=== PATIENT | female | born 1995 | race African-American/Black ===

== ENCOUNTER 2017-01-23 10:40 | Emergency (ER) | payer SELFPAY ==
[2017-01-23 10:48] VITALS: TEMP 37
[2017-01-23] MEDS ORDERED: MoRPHine SULFATE 4 MG/ML 1 ML CARP\\VIAL IV STA (11:05)
[2017-01-23] MEDS ORDERED: ONDANSETRON INJ 2 MG/ML 2 ML VIAL IV STA (11:05)
--- NOTE | 2017-01-23 11:11 | EMERGENCY ROOM VISIT NOTE ---
History First contact with patient: 10:51 Chief Complaint: ABDOMINAL PAIN Stated Complaint: STOMACH ACHE History of Present Illness The patient is a 21 year old female who presents to the Emergency Room via private vehicle accompanied by female with complaints of "stomachache". The patient states that 4 days ago she began with left upper quadrant abdominal pain status post eating. She states that the discomfort at times will radiate into the lower abdomen. The pain has been constant, and rates it as a 6-7/10. She's never had this before. There is associated nausea, a chilled feeling. She also notes frequent bowel movements, and urinary frequency. She denies any vomiting, diarrhea, recent antibiotic use, chance of , vaginal discharge, back pain, recent sexual activity. Review of Systems A complete 10-point Review of Systems was discussed with the patient, with pertinent positives and negatives listed in the History of Present Illness. All remaining Review of Systems questions can be considered negative unless otherwise specified. Past Medical/Surgical History Stomach problems. Family History Diabetes Social History Smoking Status: Never Smoker Patient lives with self. Denies tobacco use, and admits to alcohol use. Current/Historical Medications Scheduled PRN Ibuprofen (Ibu-200), 2 TAB PO QID PRN for Pain Oxycodone Ir (Roxicodone Ir), 1-2 TAB PO Q4H PRN for Pain Simethicone (Gas Relief), 1 TAB PO DAILY PRN for Gas or Constipation Physical Exam Vital Signs Date Time Temp Pulse Resp B/P (MAP) Pulse Ox O2 Delivery O2 Flow Rate FiO2 01/23/17 13:50 82 14 128/78 97 Room Air 01/23/17 13:00 86 16 124/76 97 Room Air 01/23/17 12:19 98 Room Air 01/23/17 10:48 37.0 83 18 128/89 100 Room Air Physical Exam VITAL SIGNS - Vital signs and nursing notes were reviewed. Patient is afebrile , normotensive, non-tachycardic and is saturating well on room air at 100%. GENERAL -21-year-old female appearing her stated age who is in no acute distress. Communicates well with provider and answers questions appropriately. SKIN - Without rashes. No petechial rashes. HEAD - NC/AT. EYES - Sclera anicteric. No hyphema. EARS - No deformities of external structures noted on gross examination bilaterally. NOSE - Midline and without cyanosis. No epistaxis or purulent drainage noted. MOUTH/OROPHARYNX - Without perioral cyanosis. NECK - Neck with FROM. No meningismus. LUNGS - Chest wall symmetric without accessory muscle use, intercostals retractions, or central cyanosis. Normal vesicular breath sounds CTA B/L. No wheezes, rales, or rhonchi appreciated. CARDIAC - RRR with S1/S2. No murmur, rubs, or gallops appreciated. ABDOMEN - Abdominal contour without pulsations or visible masses. BS normoactive all four quadrants. There is tenderness palpation in the left upper quadrant. No suprapubic tenderness. No inferior quadrant tenderness. No palpable masses, hepatosplenomegaly, or ascites noted. EXTREMITIES - No clubbing or peripheral cyanosis. No pretibial edema present. +5 /5 strength noted in UE/LE bilaterally. NEUROLOGIC - Cranial nerves II through XII grossly intact. PSYCH - A&O. Pt is very pleasant and interacts well with examiner. Medical Decision & Procedures ER Provider Diagnostic Interpretation: ABDOMEN COMPLETE (US) CLINICAL HISTORY: Left upper quadrant abdominal pain COMPARISON STUDY: No previous studies for comparison. FINDINGS: The liver appears sonographically normal. The pancreas appears sonographically normal. The gallbladder appears sonographically normal. There is no ductal dilatation. The common bile duct measures 3 mm. The spleen measures 7 cm. No splenic masses are visualized. The right kidney measures 12.2 cm in length. The left kidney measures 11.6 cm in length. No renal masses are visualized. There is no hydronephrosis. There is borderline increased renal cortical echogenicity. There is no evidence of abdominal aortic dilatation. The IVC appears patent. IMPRESSION: Renal cortical echogenicity is at the upper limits of normal. Correlation with urinary function studies is recommended. Otherwise normal ultrasound of the upper abdomen Electronically signed by: Steve Bee M.D. 01/23/2017 1:03 PM Dictated Date/Time: 01/23/2017 1:[address] ABD/PELVIS IV AND ORAL CONT CLINICAL HISTORY: Left upper quadrant pain radiation into lower abdomen COMPARISON STUDY: Abdominal ultrasound dated 01/23/2017 TECHNIQUE: Following the IV administration of 94 mL of Optiray-320, CT scan of the abdomen and pelvis was performed from the lung bases to the proximal femurs. Images are reviewed in the axial, sagittal, and coronal planes. IV contrast was administered without complication. A dose lowering technique was utilized adhering to the principles of ALARA. CT DOSE: 321.59 mGy.cm FINDINGS: Lower chest: The heart is normal in size and configuration, without pericardial effusion. The lung bases and pleural spaces are clear. Liver: The contrast-enhanced liver is normal in size, contour, and attenuation. There is no intrahepatic biliary ductal dilatation. The hepatic veins and portal veins are patent. Gallbladder: Unremarkable. Spleen: Normal in size and attenuation. Pancreas: Unremarkable. Adrenal glands: Unremarkable. Kidneys: There is mild dilatation of the upper pole calyces bilaterally. No calculi are visualized. There is no significant ureteral dilatation. Bowel: There are no transition zones indicate bowel obstruction. The appendix appears normal. There is no acute diverticulitis. Peritoneum: There is no intraperitoneal free air or abdominal ascites. Vasculature: The abdominal aorta is normal in course and caliber. Adenopathy: None. Pelvic viscera: The bladder, and pelvic viscera are unremarkable. Skeletal structures: No destructive osseous lesions are seen. IMPRESSION: 1. No evidence of bowel obstruction. No evidence of free air 2. Normal appendix 3. No evidence of acute diverticulitis 4. Mild dilatation of the renal upper pole calyces bilaterally. No calculi identified. Electronically signed by: Steve Bee M.D. 01/23/2017 1:51 PM Dictated Date/Time: 01/23/2017 1:43 PM Laboratory Results 01/23/17 11:55 Red Blood Count 4.81, Mean Corpuscular Volume 85.7, Mean Corpuscular Hemoglobin 29.9, Mean Corpuscular Hemoglobin Concent 35.0, Mean Platelet Volume 9.6, Neutrophils (%) (Auto) 73.3, Lymphocytes (%) (Auto) 18.5, Monocytes (%) (Auto) 7.4, Eosinophils (%) (Auto) 0.1, Basophils (%) (Auto) 0.4, Neutrophils # (Auto) 4.92, Lymphocytes # (Auto) 1.24, Monocytes # (Auto) 0.50, Eosinophils # (Auto) 0.01, Basophils # (Auto) 0.03 01/23/17 11:55 Test 01/23/17 00:00 01/23/17 11:26 01/23/17 11:55 Urine Color YELLOW Urine Appearance CLEAR (CLEAR) Urine pH 5.0 (4.5-7.5) Urine Specific [place] 1.013 (1.000-1.030) Urine Protein NEG (NEG) Urine Glucose (UA) NEG (NEG) Urine Ketones 1+ (NEG) Urine Occult Blood NEG (NEG) Urine Nitrite NEG (NEG) Urine Bilirubin NEG (NEG) Urine Urobilinogen NEG (NEG) Urine Leukocyte Esterase NEG (NEG) Urine Test NEG (NEG) Prothrombin Time 11.8 SECONDS (9.0-12.0) Prothromb Time International Ratio 1.1 (0.9-1.1) Activated Partial Thromboplast Time 20.0 SECONDS (21.0-31.0) Partial Thromboplastin Ratio 0.8 White Blood Count 6.72 K/uL (4.8-10.8) Red Blood Count 4.81 M/uL (4.2-5.4) Hemoglobin 14.4 g/dL (12.0-16.0) Hematocrit 41.2 % (37-47) Mean Corpuscular Volume 85.7 fL (80-100) Mean Corpuscular Hemoglobin 29.9 pg (25-34) Mean Corpuscular Hemoglobin Concent 35.0 g/dl (32-36) Platelet Count 316 K/uL (130-400) Mean Platelet Volume 9.6 fL (7.4-10.4) Neutrophils (%) (Auto) 73.3 % Lymphocytes (%) (Auto) 18.5 % Monocytes (%) (Auto) 7.4 % Eosinophils (%) (Auto) 0.1 % Basophils (%) (Auto) 0.4 % Neutrophils # (Auto) 4.92 K/uL (1.4-6.5) Lymphocytes # (Auto) 1.24 K/uL (1.2-3.4) Monocytes # (Auto) 0.50 K/uL (0.11-0.59) Eosinophils # (Auto) 0.01 K/uL (0-0.5) Basophils # (Auto) 0.03 K/uL (0-0.2) RDW Standard Deviation 40.6 fL (36.4-46.3) RDW Coefficient of Variation 12.8 % (11.5-14.5) Immature Granulocyte % (Auto) 0.3 % Immature Granulocyte # (Auto) 0.02 K/uL (0.00-0.02) Anion Gap 10.0 mmol/L (3-11) Estimated GFR () 133.0 Estimated GFR (Non- 114.7 BUN/Creatinine Ratio 9.8 (10-20) Calcium Level 9.7 mg/dl (8.5-10.1) Magnesium Level 2.2 mg/dl (1.8-2.4) Total Bilirubin 1.4 mg/dl (0.2-1) Aspartate Amino Transf (AST/SGOT) 16 U/L (15-37) Alanine Aminotransferase (ALT/SGPT) 18 U/L (12-78) Alkaline Phosphatase 64 U/L (45-117) Total Protein 8.3 gm/dl (6.4-8.2) Albumin 4.5 gm/dl (3.4-5.0) Globulin 3.8 gm/dl (2.5-4.0) Albumin/Globulin Ratio 1.2 (0.9-2) Lipase 134 U/L (73-393) Monoscreen NEG (NEG) Medications Administered Medications (Trade) Dose Ordered Sig/Daxa Route Start Time Stop Time Status Last Admin Dose Admin Sodium Chloride 1,000 ml @ 200 mls/hr Q5H IV 01/23/17 11:15 01/23/17 14:40 DC 01/23/17 11:15 200 MLS/HR Morphine Sulfate (MoRPHine SULFATE INJ) 4 mg NOW STAT IV 01/23/17 11:05 01/23/17 11:09 DC 01/23/17 11:05 4 MG Ondansetron HCl (Zofran Inj) 4 mg NOW STAT IV 01/23/17 11:05 01/23/17 11:09 DC 01/23/17 11:05 4 MG Medical Decision Patient was seen and evaluated as above. After obtaining a thorough history and physical examination IV access was initiated and the above workup was performed. For pain she was given morphine, and for nausea she was given Zofran. She was hydrated with 1 L of normal saline at 200 mils per hour. Ultrasound was obtained of the abdomen and found to be negative. Patient was drinking the contrast, and benefits versus risk was decided and the decision was made to obtain a CT scan of the abdomen and pelvis. Results as above. These are essentially negative. There is slight increase of echogenicity of the renal calyces, however I believe this is likely of normal status. Her urinalysis is negative. Mild ketones. CBC reveals no leukocytosis or anemia. A PTT is low at 20.0. Total bilirubin high at 1.4, protein 8.3. Urinalysis reveals 1+ ketones. Urine test negative. [place] screen negative. Patient was reevaluated and was feeling better. She appears stable for outpatient management. I suspect she is likely experiencing a mild gastritis. I would recommend Maalox, a short course of pain medication. She is a follow- up with [facility] regarding today's visit. She was educated upon worrisome symptoms which to return, had questions prior to discharge, and was discharged home in good condition. In the evaluation and treatment this patient following differential diagnoses were entertained: Stable medically, mononucleosis, gaseous distention, gastritis , among others. Impression Primary Impression: Left upper quadrant pain Departure Information Dispostion Home / Self-Care Condition GOOD Prescriptions Oxycodone Ir (Roxicodone Ir) 5 Mg Tab 1-2 TAB PO Q4H Y for Pain, #15 TAB For Initial Treatment Prov: Flex Mittal, BRADLEY 01/23/17 Patient Instructions ED Diet [place], [facility] Additional Instructions You have been treated in the Emergency Department your Abdominal Pain. Laboratory results and imaging studies have ruled out any emergent causes for your abdominal pain which would warrant admission or surgery. You have been prescribed Oxy IR to be used for pain control. This is a narcotic medication. You cannot drive or consume alcohol while on this medicine. This medicine should only be used for pain that cannot be controlled with over-the- counter pain medicines. Please take one tablet every 6 hours until you know how you respond to this medication. For pain control, you can use the following [id number] medicines (if >12 yo): - Regular strength (325mg/tab) Tylenol (acetaminophen) 2 tabs every 4-6 hours as needed. Do not exceed 12 tablets in a 24 hour period. Avoid taking more than 3 grams (3000 mg) of Tylenol per day. This includes any other sources of acetaminophen you may take on a regular basis. - Regular strength (200 mg/tab) Advil (ibuprofen) 1-2 tabs every 4-6 hours as needed. Do not exceed a dose of 3200 mg per day. You may use [id number] Maalox according to the package description for the next few days. Drink plenty of water and stay well hydrated. As with any trip to the Emergency Department, you should follow-up with your Primary Care Provider from today's visit. Please keep your appointment Tuesday for follow-up with [facility]. Return to the emergency department if your symptoms persist despite treatment plan outlined above or if the following symptoms occur: increased fevers, chills , worsening nausea/vomiting, blood in your stool or urine. Please return to emergency department with any new/concerning symptoms.
[2017-01-23] MEDS ORDERED: SODIUM CHLORIDE 0.9% 1000ML 1,000 ML IV SCH (11:15)
[2017-01-23] MEDS ORDERED: OPTIRAY 320 IV PRN (11:45)
[2017-01-23 11:49] LABS: INR 1.1 (0.9-1.1); PARTIAL THROMBOPLASTIN RATIO 0.8; PROTHROMBIN TIME (PATIENT) 11.8 SECONDS (9.0-12.0)
[2017-01-23 12:17] LABS: BASO % 0.4 %; BASO ABS # 0.03 K/uL (0-0.2); COMPLETE YES; EOS % 0.1 %; HEMATOCRIT 41.2 % (37-47); IG% 0.3 %; LYMPH % 18.5 %; LYMPH ABS # 1.24 K/uL (1.2-3.4); MEAN CELL VOLUME 85.7 fL (80-100); MEAN CORPUSCULAR HEMOGLOBIN 29.9 pg (25-34); MEAN PLATELET VOLUME 9.6 fL (7.4-10.4); MONO % 7.4 %; NEUT % 73.3 %; PLATELET COUNT 316 K/uL (130-400); RED BLOOD COUNT 4.81 M/uL (4.2-5.4); WHITE BLOOD COUNT 6.72 K/uL (4.8-10.8)
[2017-01-23 12:19] VITALS: O2SAT 98
[2017-01-23] MEDS ORDERED: IBUP200T80 PO (12:24)
[2017-01-23] MEDS ORDERED: SIME1CHW17 PO (12:25)
[2017-01-23 12:36] LABS: URINE APPEARANCE CLEAR (CLEAR); URINE BILIRUBIN NEG (NEG); URINE COLOR YELLOW; URINE NITRITE NEG (NEG); URINE SPECIFIC GRAVITY 1.013 (1.000-1.030); UROBILINOGEN NEG (NEG); ZZUR CULT IF INDIC CLEAN CATCH NO
[2017-01-23 12:40] LABS: MANUAL MICROSCOPIC REQUIRED? NO; REVIEW REQ? NO
[2017-01-23 12:45] LABS: ALT/SGPT 18 U/L (12-78); AST/SGOT 16 U/L (15-37); BLOOD UREA NITROGEN 7 mg/dl (7-18); BUN/CREATININE RATIO 9.8 (10-20); CALCIUM 9.7 mg/dl (8.5-10.1); CARBON DIOXIDE 24 mmol/L (21-32); CHLORIDE 107 mmol/L (98-107); CREATININE 0.75 mg/dl (0.60-1.20); GLUCOSE 101 mg/dl (70-99); MAGNESIUM 2.2 mg/dl (1.8-2.4); POTASSIUM 4.3 mmol/L (3.5-5.1); SODIUM 141 mmol/L (136-145)
[2017-01-23 12:47] LABS: ALB/GLOB RATIO 1.2 (0.9-2); ALKALINE PHOSPHATASE 64 U/L (45-117)
--- NOTE | 2017-01-23 13:04 | DIAGNOSTIC IMAGING REPORT ---
ABDOMEN COMPLETE (US) CLINICAL HISTORY: Left upper quadrant abdominal pain COMPARISON STUDY: No previous studies for comparison. FINDINGS: The liver appears sonographically normal. The pancreas appears sonographically normal. The gallbladder appears sonographically normal. There is no ductal dilatation. The common bile duct measures 3 mm. The spleen measures 7 cm. No splenic masses are visualized. The right kidney measures 12.2 cm in length. The left kidney measures 11.6 cm in length. No renal masses are visualized. There is no hydronephrosis. There is borderline increased renal cortical echogenicity. There is no evidence of abdominal aortic dilatation. The IVC appears patent. IMPRESSION: Renal cortical echogenicity is at the upper limits of normal. Correlation with urinary function studies is recommended. Otherwise normal ultrasound of the upper abdomen Electronically signed by: Steve Bee M.D. 01/23/2017 1:03 PM Dictated Date/Time: 01/23/2017 1:00 PM
[2017-01-23 13:50] VITALS: BP 128/78; PULSE 82; O2SAT 97
--- NOTE | 2017-01-23 13:52 | DIAGNOSTIC IMAGING REPORT ---
CT ABD/PELVIS IV AND ORAL CONT CLINICAL HISTORY: Left upper quadrant pain radiation into lower abdomen COMPARISON STUDY: Abdominal ultrasound dated 01/23/2017 TECHNIQUE: Following the IV administration of 94 mL of Optiray-320, CT scan of the abdomen and pelvis was performed from the lung bases to the proximal femurs. Images are reviewed in the axial, sagittal, and coronal planes. IV contrast was administered without complication. A dose lowering technique was utilized adhering to the principles of ALARA. CT DOSE: 321.59 mGy.cm FINDINGS: Lower chest: The heart is normal in size and configuration, without pericardial effusion. The lung bases and pleural spaces are clear. Liver: The contrast-enhanced liver is normal in size, contour, and attenuation. There is no intrahepatic biliary ductal dilatation. The hepatic veins and portal veins are patent. Gallbladder: Unremarkable. Spleen: Normal in size and attenuation. Pancreas: Unremarkable. Adrenal glands: Unremarkable. Kidneys: There is mild dilatation of the upper pole calyces bilaterally. No calculi are visualized. There is no significant ureteral dilatation. Bowel: There are no transition zones indicate bowel obstruction. The appendix appears normal. There is no acute diverticulitis. Peritoneum: There is no intraperitoneal free air or abdominal ascites. Vasculature: The abdominal aorta is normal in course and caliber. Adenopathy: None. Pelvic viscera: The bladder, and pelvic viscera are unremarkable. Skeletal structures: No destructive osseous lesions are seen. IMPRESSION: 1. No evidence of bowel obstruction. No evidence of free air 2. Normal appendix 3. No evidence of acute diverticulitis 4. Mild dilatation of the renal upper pole calyces bilaterally. No calculi identified. Electronically signed by: Steve Bee M.D. 01/23/2017 1:51 PM Dictated Date/Time: 01/23/2017 1:43 PM
[2017-01-23] MEDS ORDERED: OXYC1TAB3 PO (14:09)
== END 2017-01-23 14:32 | disposition home or self-care (01) ==
LOC: C.EDB 10:42 → C.EDC 14:32
DX: R10.12 Left upper quadrant pain (principal); Z83.3 Family history of diabetes mellitus